=== PATIENT | female | born 1985 | race African-American/Black ===

== ENCOUNTER 2017-01-26 18:16 | Inpatient (IN) | payer OTHER ==
[~2017-01-26] VITALS: Ht 165.1 cm; Wt 75.3 kg
[2017-01-26] MEDS ORDERED: TERBUTALINE 1 MG/ML VIAL. SQ PRN (19:00)
[2017-01-26] MEDS ORDERED: IBUPROFEN 800 MG TABLET. PO PRN (19:00)
[2017-01-26] MEDS ORDERED: MAG HYDROX/ALUMINUM HYD/SIMETH 30 ML ORAL.SUSP PO PRN (19:00)
[2017-01-26] MEDS ORDERED: OXYTOCIN 30 UNIT/500 ML PREMIX 500 ML IV PRN ×2 (19:00)
[2017-01-26] MEDS ORDERED: BUTORPHANOL 2 MG/ML VIAL. IV PRN ×2 (19:00)
[2017-01-26] MEDS ORDERED: LIDOCAINE 1% PF 30 ML VIAL. INJ PRN (19:00)
[2017-01-26] MEDS ORDERED: CITRIC ACID/SODIUM CITRATE 30 ML SOLUTION. PO PRN (19:00)
[2017-01-26] MEDS ORDERED: 0.9 % SODIUM CHLORIDE 10 ML DISP.SYRIN. IV PRN (19:00)
[2017-01-26] MEDS ORDERED: fentaNYL PF VIAL 100 MCG/2 ML VIAL IV PRN (19:00)
[2017-01-26] MEDS ORDERED: DINOPROSTONE 10 MG SUPP.VAG VG ONE (19:00)
[2017-01-26] MEDS: IV RINGERS,LACTATED 1000ML 1,000 ML IV SCH (20:35)
[2017-01-26 20:52] LABS: HEMATOCRIT 38.5 % (36.0-47.0); HEMOGLOBIN 13.5 g/dL (12.0-15.5); RED BLOOD COUNT 4.22 x10^6/uL (3.50-5.40); RED CELL DISTRIBUTION WIDTH 13.8 % (11.5-14.5); WHITE BLOOD COUNT 6.4 x10^3/uL (4.0-11.0)
--- NOTE | 2017-01-27 00:49 | RAD ---
PROCEDURE Obstetrical ultrasound 01/26/2017. HISTORY Evaluate position. TECHNIQUE COMPARISON FINDINGS A living intrauterine fetus is demonstrated. It was in cephalic position at the time of scanning. Heart rate of 121 beats per minute was shown. Amniotic fluid volume appears appropriate. The placenta is seen near the fundus and does not approach the cervix. Although a full anatomic survey was not undertaken, no anomaly was encounter. The following age estimates were obtained: BPD: 38 weeks 6 days. HC: 39 weeks 6 days. HC: 40 weeks 1 day. FL: 39 weeks 3 days. Estimated gestational age is 39 weeks 4 days. Estimated weight is 3895 grams. IMPRESSION Living intrauterine fetus is demonstrated in cephalic position. Electronically signed by: Kingston Fuchs (Jan 27, 2017 00:48:05)
[2017-01-27] MEDS ORDERED: OXYTOCIN in NORMAL SALINE PREMIX 30 UNIT/500 ML BAG. IV ONE (09:00)
[2017-01-27] MEDS ORDERED: L&D EPIDURAL CASSETTE 100 ML PUMP.RESVR. EP ONE (12:00)
[2017-01-27] MEDS ORDERED: ROPIVacaine 0.2% IN 0.9%NACL PF 40 MG/20 ML DISP.SYRIN. ONE ×2 (12:18→13:00)
[2017-01-27] MEDS ORDERED: L&D EPIDURAL CASSETTE 100 ML EP ONE (12:18)
[2017-01-27] MEDS: IV RINGERS,LACTATED 1000ML 1,000 ML IV SCH (12:35)
[2017-01-27] MEDS ORDERED: ONDANSETRON PF 4 MG/2 ML VIAL. ONE ×2 (13:00→16:34)
[2017-01-27] MEDS ORDERED: PHENYLEPH/MINERAL OIL/PETROLAT RECTAL OINTMENT 28GM TUBE. RC PRN (17:30)
[2017-01-27] MEDS ORDERED: ACETAMINOPHEN 325 MG TABLET. PO PRN (17:30)
[2017-01-27] MEDS ORDERED: MAG HYDROX/ALUMINUM HYD/SIMETH 30 ML ORAL.SUSP PO PRN (17:30)
[2017-01-27] MEDS ORDERED: HYDROCORTISONE 1% TOPICAL OINTMENT 30GM TUBE. TP PRN (17:30)
[2017-01-27] MEDS ORDERED: OXYTOCIN 30 UNIT/500 ML PREMIX 500 ML IV PRN (17:30)
[2017-01-27] MEDS ORDERED: 0.9 % SODIUM CHLORIDE 10 ML DISP.SYRIN. IV PRN (17:30)
[2017-01-27] MEDS ORDERED: ZOLPIDEM 5 MG TABLET. PO PRN (17:30)
[2017-01-27] MEDS ORDERED: diphenhydrAMINE HCL 25 MG CAPSULE PO PRN (17:30)
[2017-01-27] MEDS ORDERED: BENZOCAINE 20% TOPICAL AEROSOL SPRAY 57GM CAN. TP PRN (17:30)
--- NOTE | 2017-01-27 17:46 | PDOC1 ---
OB - History Hx of Present Care: Good Care Ultrasounds: Normal mid trimester US Obstetrical Complications: None Medical Complications: None Past Family/Social History * Past Medical, Surgical, Family and Obstetric Histories reviewed from chart. Blood Type: Unknown Rubella: Immune RPR/VDRL: Negative GBS Status: Negative HBsAG: Negative OB - Chief Complaint & HPI Date of Admission: Date of Admission: Jan 26, 2017 at 18:16 Chief Complaint/History : 5 Para: 4 EDC: Feb 01, 2017 Reason for admission: induction of labor Indication for induction: other Admission Nurse Assessment Rev: Yes Problems: OB - Admission Exam Physical Exam HEENT: Normal, Nasal Mucosa Normal, Oropharynx Normal, Moist Membranes, Fontanelles Normal Heart: Regular Rate Lungs: Clear, Equal Abdomen: Gravid Extremities: Normal Pulses, No tenderness or swelling Reflexes: Normal Cervical Dilatation: 2cm Effacement: 25% Station: -3 Membranes: Intact Amniotic Fluid: Clear Heart Rate: Normal Accelerations: Accelerations Present Contractions on Admission: >10 Minutes Apart Assessment/Plan Assessment/Plan TIUP Induction ACS REDE JARRETT MD Jan 27, 2017 17:46
--- NOTE | 2017-01-27 17:48 | PDOC ---
VAGINAL DELIVERY DATE DATE: 01/27/17 TIME: 17:46 : 5 Para: 4 EDC: Feb 01, 2017 VAGINAL DELIVERY: VTX SEX: Male WEIGHT 8/7 Amniotic Fluid: Clear PAIN: Epidural EPISIOTOMY: No EXTENSION: Yes EBL 400cc COMPLICATIONS none CONDITION Stable Signs of Intrauterine Infectio: None Shoulder Dystocia: No DIAGNOSIS TIUP Problems: REED JARRETT MD Jan 27, 2017 17:48
[2017-01-27] MEDS ORDERED: METHYLERGONOVINE MALEATE 0.2 MG/ML VIAL. IM ONE (18:15)
[2017-01-27 21:30] VITALS: BP 122/62
[2017-01-27] MEDS: HYDROCODONE/APAP 5/325MG TABLET. PO PRN (22:15)
[2017-01-27 22:30] VITALS: BP 108/68
[2017-01-27 23:24] LABS: BARBITURATES NEG (NEG); BENZODIAZEPINES NEG (NEG); CANNABINOIDS NEG (NEG); COCAINE NEG (NEG); METHADONE NEG (NEG); OPIATES NEG (NEG); PHENCYCLIDINE NEG (NEG)
[2017-01-28] VITALS (12 sets, daily range): BP systolic 103–128; BP diastolic 56–85
[2017-01-28] MEDS: HYDROCODONE/APAP 5/325MG TABLET. PO PRN ×3 (05:07→18:19)
[2017-01-28] MEDS: IBUPROFEN 800 MG TABLET. PO SCH ×2 (05:08→20:55)
[2017-01-28 06:16] LABS: RPR REFLEX Non Reactive (Non Reactive)
[2017-01-28] MEDS ORDERED: FERROUS SULFATE 325 MG TABLET. PO SCH (08:00)
[2017-01-28] MEDS: METHYLERGONOVINE MALEATE 0.2 MG TABLET PO SCH ×2 (08:49→20:55)
[2017-01-28] MEDS ORDERED: BUPIVACAINE-EPI 0.5%-1:200000 50 ML VIAL. ONE (14:02)
[2017-01-28] MEDS ORDERED: PROPOFOL 20 ML IV ONE (14:56)
[2017-01-28] MEDS ORDERED: ONDANSETRON PF 4 MG/2 ML VIAL. ONE (14:56)
[2017-01-28] MEDS ORDERED: SUCCINYLCHOLINE 200 MG/10 ML VIAL. ONE (14:56)
[2017-01-28] MEDS ORDERED: DEXAMETHASONE SOD PHOS 20 MG/5 ML VIAL. ONE (14:56)
[2017-01-28] MEDS ORDERED: fentaNYL PF VIAL 100 MCG/2 ML VIAL ONE ×2 (14:56→16:41)
[2017-01-28] MEDS ORDERED: FAMOTIDINE 20 MG/2 ML VIAL ONE (14:56)
[2017-01-28] MEDS ORDERED: LIDOCAINE 2% 100 MG/5 ML SYRINGE. ONE (14:56)
[2017-01-28] MEDS ORDERED: KETOROLAC 60 MG/2 ML INJ FOR OR. ONE (16:14)
[2017-01-28] MEDS ORDERED: SEVOFLURANE 61 TO 120 MINUTES. IH ONE (16:14)
--- NOTE | 2017-01-28 16:26 | PDOC ---
BRIEF OPERATIVE NOTE Date: Jan 28, 2017 Pre-Op Diagnosis Multiparous desires permanent sterilization Post-Op Diagnosis Same Procedure Performed PPBTL Surgeon Danni [employer] Representative None Anesthesia Type: General Blood Loss 10cc Specimens Obtained R and L ovaducts Complications None REED JARRETT MD Jan 28, 2017 16:26
[2017-01-28] MEDS ORDERED: PROCHLORPERAZINE 10 MG/2 ML VIAL. ONE (16:35)
[2017-01-28] MEDS ORDERED: PROCHLORPERAZINE 10 MG/2 ML VIAL. IV PRN (16:45)
[2017-01-28] MEDS ORDERED: MORPHINE SULFATE 4 MG/ML DISP.SYRIN. IV PRN (16:45)
[2017-01-28] MEDS: fentaNYL PF VIAL 100 MCG/2 ML VIAL IV PRN ×4 (16:45→17:13)
[2017-01-28] MEDS ORDERED: fentaNYL PF VIAL 100 MCG/2 ML VIAL IV PRN (16:45)
[2017-01-29 01:18] VITALS: BP 131/88
[2017-01-29] MEDS: SIMETHICONE 80 MG TAB.CHEW PO PRN ×3 (02:59→21:55)
[2017-01-29] MEDS: HYDROCODONE/APAP 5/325MG TABLET. PO PRN (02:59)
[2017-01-29 05:22] VITALS: BP 125/86
[2017-01-29] MEDS: IBUPROFEN 800 MG TABLET. PO SCH ×2 (09:46→16:30)
[2017-01-29 09:54] VITALS: BP 118/69
[2017-01-29 15:20] VITALS: BP 121/69
[2017-01-29] MEDS: MAGNESIUM HYDROXIDE 2,400 MG/30 ML ORAL.SUSP. PO PRN (16:30)
--- NOTE | 2017-01-29 17:34 | PDOC ---
Provider Note Provider Note Not tolerating pain very well no nausea or vomiting VSS Abd distended + BS Check labs encourage ambulation FU in AM Vital Sign - Last 24 Hours 01/28/17 01/28/17 01/28/17 01/28/17 17:35 17:50 18:00 18:15 Temp 97.8 97.5 97.8 97.5 Pulse 78 62 67 74 Resp 16 B/P 124/77 118/82 120/84 128/84 Pulse Ox 96 93 98 95 O2 Delivery Nasal Cannula Nasal Cannula Nasal Cannula Room Air O2 Flow Rate 2 2.0 2.0 01/28/17 01/28/17 01/28/17 01/28/17 18:19 18:30 18:46 19:15 Pulse 68 62 64 Resp 16 B/P 128/85 120/62 116/76 Pulse Ox 94 94 O2 Delivery Room Air Room Air Room Air Room Air 01/28/17 01/28/17 01/29/17 01/29/17 19:45 20:15 01:18 02:59 Temp 97.9 98.2 97.9 98.2 Pulse 84 66 59 Resp 18 B/P 120/78 122/56 131/88 Pulse Ox 94 96 95 O2 Delivery Room Air Room Air Room Air Room Air 01/29/17 01/29/17 01/29/17 04:00 05:22 09:54 Temp 97.5 97.9 97.5 97.9 Pulse 85 68 Resp B/P 125/86 118/69 Pulse Ox 97 97 O2 Delivery Room Air Room Air Room Air Intake and Output 01/28/17 01/28/17 01/29/17 14:59 22:59 06:59 Intake Total 100 ml 800 ml Balance 100 ml 800 ml REED JARRETT MD Jan 29, 2017 17:34
[2017-01-29 18:31] LABS: ALBUMIN 2.2 g/dL (3.4-5.0); ALBUMIN/GLOBULIN RATIO 0.7 (1.0-1.7); CALCIUM 8.5 mg/dL (8.5-10.1); CREATININE 0.8 mg/dL (0.6-1.0); GFR 101.9; POTASSIUM 3.2 mmol/L (3.5-5.1); TOTAL BILIRUBIN 0.2 mg/dL (0.2-1.0); TOTAL PROTEIN 5.5 g/dL (6.4-8.2)
[2017-01-29 23:00] VITALS: BP 116/87
[2017-01-30] MEDS: IBUPROFEN 800 MG TABLET. PO SCH ×2 (03:00→16:48)
[2017-01-30 05:19] LABS: BASO % 0 % (0-3); EOS % 2 % (0-3); HEMATOCRIT 31.1 % (36.0-47.0); HEMOGLOBIN 10.8 g/dL (12.0-15.5); LYMPH # 1.4 x10^3/uL (1.0-4.8); LYMPH % 17 % (24-48); MEAN CORPUSCULAR HEMOGLOBIN 32 pg (25-35); MEAN CORPUSCULAR HGB CONC 35 g/dL (31-37); MEAN CORPUSCULAR VOLUME 93 fL (79-100); MONO % 6 % (0-9); NEUT % 75 % (31-73); PLATELET COUNT 101 x10^3/uL (140-400); RED BLOOD COUNT 3.35 x10^6/uL (3.50-5.40); RED CELL DISTRIBUTION WIDTH 13.3 % (11.5-14.5); WHITE BLOOD COUNT 8.5 x10^3/uL (4.0-11.0)
[2017-01-30 05:45] VITALS: BP 110/74
[2017-01-30] MEDS ORDERED: BISACODYL 10 MG SUPP.RECT. PR PRN (09:00)
[2017-01-30] MEDS: SIMETHICONE 80 MG TAB.CHEW PO PRN (09:19)
[2017-01-30] MEDS: HYDROCODONE/APAP 5/325MG TABLET. PO PRN (09:25)
[2017-01-30 09:45] VITALS: BP 121/77
[2017-01-30 11:36] VITALS: BP 117/79
--- NOTE | 2017-01-30 12:48 | PDOC ---
Provider Note Provider Note Improving VSS 10cm circumferential ecchymosis around umbilicus no signs of infection DC home REED JARRETT MD Jan 30, 2017 12:48
--- NOTE | 2017-01-30 12:50 | PDOC3 ---
OB DISCHARGE SUMMARY DATE OF ADMISSION: 01/27/17 DATE OF DISCHARGE: 01/30/17 REASON FOR ADMISSION: Induction of labor PROCEDURES: Ultrasound INTRAPARTUM PROCEDURES: Tubal Ligation PROCEDURES: None OPERATIONS: None DISCHARGE DIAGNOSIS: Term Delivered DISCHARGE INFORMATION: Activity, Diet HOSPITAL COURSE Unremarkable CONDITION AT DISCHARGE Stable REED JARRETT MD Jan 30, 2017 12:50
[2017-01-30] MEDS ORDERED: OXYC-323 PO (12:51)
[2017-01-30] MEDS ORDERED: NAPR500T3 PO (12:51)
--- NOTE | 2017-01-30 13:52 | PATHOLOGY ---
PATHOLOGY REPORT * * * * * * * * FINAL DIAGNOSIS: A. "Right partial tube, fimbria," removal: - Segment of fallopian tube with evidence of complete transection. B. Fallopian tube, left, removal: - Segment of fallopian tube with evidence of complete transection. (ABRAN:; d/t: 01/30/17) REPORT ELECTRONICALLY SIGNED BY: Faisal Houston M.D. DATE/TIME: 01/30/2017 13:52 * * * * * * * * GROSS PATHOLOGY: A. The specimen is received in formalin labeled "Cheikh Monk, right fimbria," and additionally labeled on the requisition as, "right partial tube, fimbria". Received is a fimbriated fallopian tube measuring 4.8 cm in length by 0.7 cm in diameter upon reconstruction. Sectioning reveals a pinpoint lumen. The specimen is submitted representatively in cassette A1. B. Received in formalin labeled "Cheikh Monk, left tube," is a pink-ga segment of fallopian tube measuring 2.5 cm in length and 0.6 cm in diameter. The tissue is submitted entirely in cassette B1. (CAA; 01/29/2017) INITIAL CPT CODE(S): A; 88266 B; 28606 Professional services performed [place] [address] Technical services performed by [facility] at [address] [place] [address], [address] [address]. SPECIMEN(S) RECEIVED: A.Right partial tube fimbria B.Left tube CLINICAL HISTORY: Bilateral tubal ligation PATIENT: CHEIKH MONK /AGE: 1209/14/1985 (Age: 31) PATIENT #: [id number] ALT CASE #: SPECIMEN COLLECTION DATE: 01/28/2017 SPECIMEN RECEIVED DATE: 01/29/2017 [facility] - [id number] [place] [address] - PHONE: [phone] * * * END OF REPORT * * *
[2017-01-30] MEDS: MAGNESIUM HYDROXIDE 2,400 MG/30 ML ORAL.SUSP. PO PRN (16:48)
[2017-01-30 18:05] VITALS: BP 118/78
== END 2017-01-30 19:19 | disposition home or self-care (01) | DRG 767 ==
LOC: 3 SO LND 18:16 → 3 NORTH 01-27 21:30
PROVIDERS: ADMIT Specialist; ATTEND Specialist
PROC: 10E0XZZ Delivery of Products of Conception, External Approach (ICD-10-PCS; principal; 2017-01-27)
PROC: 3E0S3CZ (ICD-10-PCS; 2017-01-27)
PROC: 00HU33Z Insertion of Infusion Device into Spinal Canal, Percutaneous Approach (ICD-10-PCS; 2017-01-27)
PROC: 0UB70ZZ Excision of Bilateral Fallopian Tubes, Open Approach (ICD-10-PCS; 2017-01-28)
DX: O70.9 Perineal laceration during delivery, unspecified (principal); Z37.0 Single live birth; Z3A.39 39 weeks gestation of pregnancy; Z30.2 Encounter for sterilization
CPT/HCPCS: 36415; 76815; 80053; 85014; 85027; 86593; 86850; 86900; 86901; 88302; C1769; G0481; J0330; J0780; J1100; J1885; J2270; J2405; J2590; J2704; J2795; J3010; J7120; S0028